=== PATIENT | male | born 1955 | race Caucasian/White ===

== ENCOUNTER 2016-11-04 10:35 | Day surgery (SDC) | payer BC ==
[2016-11-04] MEDS ORDERED: LIDOCAINE 2% MDV (20MG/ML) 20ML VIAL IV ONE (14:00)
[2016-11-04] MEDS ORDERED: PROPOFOL 10 MG/ML VIAL IV ONE (14:00)
[2016-11-04] MEDS ORDERED: FENTANYL PF 100MCG/2ML VIAL IV ONE (14:00)
--- NOTE | 2016-11-09 10:38 | Operative Note ---
DATE OF SURGERY: 11/04/2016. REQUESTING PROVIDER: Kaushik Gurrola DO. SURGEON: Gene Brown MD. OPERATION: ESOPHAGOGASTRODUODENOSCOPY. INDICATIONS FOR PROCEDURE: This is a 60-year-old male with a history of intermittent episodes of dysphagia, who had a benign CT scan, who presented for esophagogastroduodenoscopy. POSTOPERATIVE DIAGNOSES:1. Distal esophageal ulcerated mass lesion, status post biopsies. 2. Normal stomach and duodenum. SEDATION: Sedation is per Anesthesia. Pulse oximetry was monitored throughout the procedure to maintain O2 saturation of 90% or greater. Supplemental oxygen was administered via nasal cannula. Cardiac and vital signs were monitored throughout the duration of the procedure, and they were stable. The standard procedure of esophagogastroduodenoscopy and risks and benefits of the procedure, including the risk of bleeding and perforation, among others, were explained to the patient, who voiced understanding and agrees to have the procedure done. Physical examination was performed, and the patient was found stable for sedation. PROCEDURE: The patient was placed in the left lateral position. Sedation was initiated. A plastic bite block was inserted into the oral cavity. The Olympus [id number] gastroscope was then introduced into the oral cavity and advanced to the proximal esophagus without difficulty. The esophageal mucosa was carefully examined upon introduction of the gastroscope. The proximal and mid esophageal mucosa appeared normal. In the distal esophagus, there was a large, ulcerated mass lesion in the distal esophagus with active bleeding and impacted food material in it. The gastroscope was then advanced into the stomach, and revealed normal gastric fundus, body, and antrum with no ulcerations or any extension of the esophageal tumor into the gastric cardia. The gastroscope was then advanced to the duodenum without difficulty. The duodenal bulb and appeared normal. The gastroscope was withdrawn into the stomach and retroflexion maneuver was performed. There were no other lesions noted. The gastroscope was then withdrawn, and the procedure was terminated. The patient tolerated the procedure well without any complications. She remained with stable vital signs and was transferred to the recovery room. PLAN AND RECOMMENDATIONS: 1. Obtain an endoscopic ultrasound evaluation of the lesion. 2. He will need a referral to an oncologist, as well as possibly a surgeon. 3. I will see him back as needed. Thank you for allowing me to participate in the care of your patient. Gene Brown MD CC: DO Gene Ramírez MD [facility]
== END 2016-11-04 12:41 | disposition home or self-care (01) ==
LOC: HOP 10:35
PROVIDERS: ATTEND Internal Medicine Gastroenterology
DX: C16.0 Malignant neoplasm of cardia (principal)
CPT/HCPCS: 43239; 00740; J3010